=== PATIENT | female | born 1955 | race African-American/Black ===

== ENCOUNTER 2022-07-06 05:04 | Inpatient (IN) | payer MEDICARE, MEDICAID ==
[~2022-07-06] VITALS: Ht 165.1 cm; Wt 113.4 kg
[2022-07-06] MEDS ORDERED: IPRATROPIUM BROMIDE (0.02%) 0.5MG/2.5ML NEB HHN STA (05:11)
[2022-07-06] MEDS ORDERED: METHYLPREDNISOLONE SOD SUCC 125 MG/2 ML VIAL IV STA (05:11)
[2022-07-06] MEDS ORDERED: ALBUTEROL (0.083%) 2.5MG/3ML NEB HHN STA (05:11)
[2022-07-06 05:38] LABS: CHLORIDE 116 mEq/L (98-107)
[2022-07-06 05:39] LABS: BASOPHILS % 0.4 % (0.0-2.0); EOSINOPHILS % 2.3 % (0.0-5.0); HEMATOCRIT. 35.7 % (36.0-48.0); HEMOGLOBIN. 11.2 g/dL (12.0-16.0); LYMPHOCYTES % 8.3 % (20.0-50.0); MEAN CORPUSCULAR HEMOGLOBIN 26.8 pg (28.0-32.0); MEAN CORPUSCULAR VOLUME 85.3 fL (81.0-99.0); MONOCYTES % 4.1 % (2.0-8.0); NEUTROPHILS % 84.9 % (40.0-76.0); PLATELET 251 x1000/uL (130-400); RED BLOOD CELL COUNT 4.18 mill/uL (4.2-5.4); RED CELL DISTRIBUTION WIDTH 17.2 % (11.6-14.6)
[2022-07-06] MEDS ORDERED: ASPIRIN 81MG TABLET PO ONE (06:15)
[2022-07-06] MEDS ORDERED: FUROSEMIDE 40MG/4ML VIAL IV ONE (06:15)
[2022-07-06 08:00] VITALS: BP 161/98
[2022-07-06] MEDS ORDERED: CLONIDINE 0.1MG TABLET PO PRN (09:45)
[2022-07-06] MEDS ORDERED: ONDANSETRON HCL 4MG/2ML INJ IV PRN (09:45)
[2022-07-06] MEDS ORDERED: IPRATROPIUM/ALBUTEROL 0.5-3(2.5)MG/3ML NEB HHN PRN (09:45)
[2022-07-06 11:00] VITALS: BP 140/80
[2022-07-06 12:00] VITALS: BP 140/80
[2022-07-06] MEDS ORDERED: DEXTROSE 50% WATER 50ML SYRINGE IV PRN (14:00)
[2022-07-06] MEDS ORDERED: INSULIN LISPRO 100 UNITS/ML SUBCUT NR (15:00)
[2022-07-06 16:00] VITALS: BP 162/94
[2022-07-06 16:02] LABS: BG BASE EXCESS -1.6 mmol/L (-2.0-2.0); BG CARBOXYHEMOGLOBIN 0.5 % (0.5-1.5); BG DEOXYHEMOGLOBIN 3.2 % (0.0-5.0); BG FRACTION INSPIRED OXYGEN 28; BG HCO3 ACT 23.2 mmol/L (22.0-26.0); BG METHEMOGLOBIN 0.3 % (0.0-1.5); BG OXYGEN SATURATION 96.8 % (92.0-98.5); BG PCO2 39.8 mmHg (35.0-45.0); BG PH 7.384 (7.350-7.450); BG PO2 90.5 mmHg (75.0-100.0); BG SAMPLE SITE RIGHT RADIAL; BG TOTAL HEMOGLOBIN 11.8 g/dL (12.0-18.0); BG VENT MODE NASAL CANNULA
[2022-07-06] MEDS: BLOOD SUGAR DIAGNOSTIC STRIP TEST SCH ×2 (17:20→21:00)
[2022-07-06] MEDS ORDERED: INSULIN LISPRO 100 UNITS/ML SUBCUT SCH ×2 (17:50)
[2022-07-06] MEDS: INSULIN LISPRO 100 UNITS/ML SUBCUT SCH ×2 (18:47→22:25)
[2022-07-06 20:00] VITALS: BP 138/79
[2022-07-06] MEDS: ATORVASTATIN CALCIUM 20MG TABLET PO SCH (22:23)
[2022-07-06] MEDS: DIPHENHYDRAMINE 50MG/ML VIAL IV PRN (22:24)
[2022-07-07] MEDS: IPRATROPIUM/ALBUTEROL 0.5-3(2.5)MG/3ML NEB HHN SCH ×4 (00:01→22:06)
[2022-07-07 00:12] VITALS: BP 131/84
[2022-07-07 04:21] VITALS: BP 128/81
[2022-07-07] MEDS ORDERED: MED4 (05:05)
[2022-07-07] MEDS ORDERED: FURO40TA5 PO (05:05)
[2022-07-07] MEDS ORDERED: EMPA10TA PO (05:05)
[2022-07-07] MEDS ORDERED: AMLO10TA80 PO (05:05)
[2022-07-07] MEDS ORDERED: CITA20TA75 PO (05:05)
[2022-07-07] MEDS ORDERED: ATEN-42 PO (05:05)
[2022-07-07] MEDS ORDERED: ALBU18HF2 IH (05:05)
[2022-07-07] MEDS ORDERED: QUET100T34 PO (05:05)
[2022-07-07] MEDS ORDERED: PROSOL NEB (05:05)
[2022-07-07] MEDS ORDERED: ATOR20TA65 PO (05:05)
[2022-07-07] MEDS ORDERED: PRED10TA PO (05:05)
[2022-07-07] MEDS ORDERED: BUPR75TA8 PO (05:05)
[2022-07-07] MEDS ORDERED: PANT40TA51 PO (05:05)
[2022-07-07] MEDS: BLOOD SUGAR DIAGNOSTIC STRIP TEST SCH ×4 (06:17→21:14)
[2022-07-07 06:40] LABS: HEMATOCRIT. 31.9 % (36.0-48.0); HEMOGLOBIN. 9.9 g/dL (12.0-16.0); MEAN CORPUSCULAR HEMOGLOBIN 26.4 pg (28.0-32.0); MEAN CORPUSCULAR VOLUME 84.7 fL (81.0-99.0); MEAN PLATELET VOLUME 7.2 fl (7.4-10.4); PLATELET 238 x1000/uL (130-400); RED BLOOD CELL COUNT 3.77 mill/uL (4.2-5.4); RED CELL DISTRIBUTION WIDTH 16.1 % (11.6-14.6)
[2022-07-07 07:04] LABS: CHLORIDE 111 mEq/L (98-107)
[2022-07-07] MEDS: INSULIN LISPRO 100 UNITS/ML SUBCUT SCH ×4 (07:50→21:00)
[2022-07-07 08:00] VITALS: BP 131/81
[2022-07-07] MEDS: AMLODIPINE 10MG TABLET PO SCH (09:06)
[2022-07-07] MEDS: FUROSEMIDE 40MG/4ML VIAL IV SCH (09:06)
[2022-07-07 09:11] LABS: BG BASE EXCESS -0.5 mmol/L (-2.0-2.0); BG CARBOXYHEMOGLOBIN 0.7 % (0.5-1.5); BG DEOXYHEMOGLOBIN 3.7 % (0.0-5.0); BG FRACTION INSPIRED OXYGEN 28; BG HCO3 ACT 24.3 mmol/L (22.0-26.0); BG METHEMOGLOBIN 0.2 % (0.0-1.5); BG OXYGEN SATURATION 96.3 % (92.0-98.5); BG OXYHEMOGLOBIN 95.4 % (94.0-97.0); BG PCO2 40.4 mmHg (35.0-45.0); BG PH 7.397 (7.350-7.450); BG PO2 82.3 mmHg (75.0-100.0); BG SAMPLE SITE RIGHT RADIAL; BG TOTAL HEMOGLOBIN 11.7 g/dL (12.0-18.0); BG VENT MODE NASAL CANNULA
[2022-07-07] MEDS ORDERED: ENOXAPARIN 120MG/0.8ML SYR SUBCUT SCH (10:00)
[2022-07-07] MEDS ORDERED: POTASSIUM CHLORIDE 20MEQ/PACKET PO NR (10:15)
[2022-07-07 10:23] LABS: PLATELET ESTIMATE NORMAL
[2022-07-07 12:00] VITALS: BP 115/71
[2022-07-07 16:00] VITALS: BP 120/83
[2022-07-07 20:00] VITALS: BP 125/78
[2022-07-07] MEDS: DIPHENHYDRAMINE 50MG/ML VIAL IV PRN (21:15)
[2022-07-07] MEDS: ATORVASTATIN CALCIUM 20MG TABLET PO SCH (21:15)
[2022-07-08] VITALS: BP 112/62
[2022-07-08] MEDS: IPRATROPIUM/ALBUTEROL 0.5-3(2.5)MG/3ML NEB HHN SCH ×4 (01:38→21:01)
[2022-07-08 04:00] VITALS: BP 121/82
[2022-07-08] MEDS: BLOOD SUGAR DIAGNOSTIC STRIP TEST SCH ×4 (07:00→21:27)
[2022-07-08] MEDS: INSULIN LISPRO 100 UNITS/ML SUBCUT SCH ×4 (07:50→21:00)
[2022-07-08 08:00] VITALS: BP 107/71
[2022-07-08] MEDS: FUROSEMIDE 40MG/4ML VIAL IV SCH (08:57)
[2022-07-08] MEDS: AMLODIPINE 10MG TABLET PO SCH (08:57)
[2022-07-08 09:22] LABS: BASOPHILS % 0.4 % (0.0-2.0); EOSINOPHILS % 1.9 % (0.0-5.0); HEMATOCRIT. 36.1 % (36.0-48.0); HEMOGLOBIN. 11.2 g/dL (12.0-16.0); LYMPHOCYTES % 18.9 % (20.0-50.0); MEAN CORPUSCULAR HEMOGLOBIN 26.3 pg (28.0-32.0); MEAN CORPUSCULAR VOLUME 84.7 fL (81.0-99.0); MEAN PLATELET VOLUME 7.3 fl (7.4-10.4); MONOCYTES % 7.3 % (2.0-8.0); NEUTROPHILS % 71.5 % (40.0-76.0); PLATELET 260 x1000/uL (130-400); RED BLOOD CELL COUNT 4.26 mill/uL (4.2-5.4); RED CELL DISTRIBUTION WIDTH 16.7 % (11.6-14.6)
[2022-07-08 09:24] LABS: CHLORIDE 110 mEq/L (98-107)
[2022-07-08 09:27] LABS: INR 1.1; PROTHROMBIN TIME 11.3 sec (9.6-11.0)
[2022-07-08 12:00] VITALS: BP 123/73
[2022-07-08] MEDS: PANTOPRAZOLE SODIUM 40 MG/VIAL IV SCH (13:56)
[2022-07-08] MEDS: BUPROPION HCL 75MG TABLET PO SCH (13:57)
[2022-07-08] MEDS: CITALOPRAM HYDROBROMIDE 10MG TABLET PO SCH (13:57)
[2022-07-08] MEDS: ENOXAPARIN 120MG/0.8ML SYR SUBCUT SCH ×2 (13:57→21:28)
[2022-07-08 16:00] VITALS: BP 121/75
[2022-07-08 20:00] VITALS: BP 126/82
[2022-07-08] MEDS: QUETIAPINE FUMARATE 50MG TABLET PO SCH (21:28)
[2022-07-08] MEDS: ATORVASTATIN CALCIUM 20MG TABLET PO SCH (21:28)
[2022-07-09] VITALS: BP 110/58
[2022-07-09] MEDS: IPRATROPIUM/ALBUTEROL 0.5-3(2.5)MG/3ML NEB HHN SCH ×4 (01:01→20:44)
[2022-07-09 04:00] VITALS: BP 105/66
[2022-07-09 06:52] LABS: BASOPHILS % 0.5 % (0.0-2.0); HEMATOCRIT. 30.9 % (36.0-48.0); HEMOGLOBIN. 9.8 g/dL (12.0-16.0); LYMPHOCYTES % 21.6 % (20.0-50.0); MEAN CORPUSCULAR HEMOGLOBIN 26.7 pg (28.0-32.0); MEAN CORPUSCULAR VOLUME 84.2 fL (81.0-99.0); MEAN PLATELET VOLUME 7.3 fl (7.4-10.4); MONOCYTES % 7.3 % (2.0-8.0); NEUTROPHILS % 67.6 % (40.0-76.0); PLATELET 233 x1000/uL (130-400); RED BLOOD CELL COUNT 3.67 mill/uL (4.2-5.4); RED CELL DISTRIBUTION WIDTH 16.4 % (11.6-14.6)
[2022-07-09] MEDS: BLOOD SUGAR DIAGNOSTIC STRIP TEST SCH ×4 (07:06→21:24)
[2022-07-09 07:29] LABS: CHLORIDE 110 mEq/L (98-107)
[2022-07-09] MEDS: INSULIN LISPRO 100 UNITS/ML SUBCUT SCH ×4 (07:50→21:00)
[2022-07-09 08:00] VITALS: BP 115/73
[2022-07-09] MEDS: FUROSEMIDE 40MG/4ML VIAL IV SCH (09:57)
[2022-07-09] MEDS: BUPROPION HCL 75MG TABLET PO SCH (09:57)
[2022-07-09] MEDS: CITALOPRAM HYDROBROMIDE 10MG TABLET PO SCH (09:57)
[2022-07-09] MEDS: ENOXAPARIN 120MG/0.8ML SYR SUBCUT SCH ×2 (09:58→21:24)
[2022-07-09] MEDS: AMLODIPINE 10MG TABLET PO SCH (09:58)
[2022-07-09] MEDS: PANTOPRAZOLE SODIUM 40 MG/VIAL IV SCH (09:59)
[2022-07-09 12:00] VITALS: BP 107/70
[2022-07-09 16:00] VITALS: BP 121/89
[2022-07-09] MEDS ORDERED: IOHEXOL-350 100 ML BOTTLE ONE (19:41)
[2022-07-09 20:00] VITALS: BP 114/73
[2022-07-09] MEDS: ACETAMINOPHEN 325MG TABLET PO PRN (20:04)
[2022-07-09 20:49] LABS: HEMATOCRIT 32.5 % (36.0-48.0); HEMOGLOBIN 10.5 g/dL (12.0-16.0); MEAN CORPUSCULAR HEMOGLOBIN 26.8 pg (28.0-32.0); PLATELET 236 x1000/uL (130-400); RED BLOOD CELL COUNT 3.91 mill/uL (4.2-5.4)
[2022-07-09] MEDS: ATORVASTATIN CALCIUM 20MG TABLET PO SCH (21:24)
[2022-07-09] MEDS: QUETIAPINE FUMARATE 50MG TABLET PO SCH (21:24)
[2022-07-10] VITALS: BP 104/57
[2022-07-10] MEDS: IPRATROPIUM/ALBUTEROL 0.5-3(2.5)MG/3ML NEB HHN SCH ×3 (01:52→14:02)
[2022-07-10] MEDS: ACETAMINOPHEN 325MG TABLET PO PRN (02:02)
[2022-07-10 04:00] VITALS: BP 112/68
[2022-07-10] MEDS: BLOOD SUGAR DIAGNOSTIC STRIP TEST SCH ×3 (07:19→17:20)
[2022-07-10] MEDS: INSULIN LISPRO 100 UNITS/ML SUBCUT SCH ×3 (07:50→17:50)
[2022-07-10 08:10] VITALS: BP 117/76
[2022-07-10 08:10] LABS: BASOPHILS % 0.6 % (0.0-2.0); EOSINOPHILS % 2.2 % (0.0-5.0); HEMATOCRIT. 35.8 % (36.0-48.0); HEMOGLOBIN. 11.1 g/dL (12.0-16.0); LYMPHOCYTES % 17.3 % (20.0-50.0); MEAN CORPUSCULAR HEMOGLOBIN 26.1 pg (28.0-32.0); MEAN PLATELET VOLUME 7.4 fl (7.4-10.4); MONOCYTES % 6.8 % (2.0-8.0); NEUTROPHILS % 73.1 % (40.0-76.0); PLATELET 261 x1000/uL (130-400); RED BLOOD CELL COUNT 4.26 mill/uL (4.2-5.4); RED CELL DISTRIBUTION WIDTH 16.5 % (11.6-14.6)
[2022-07-10 08:21] LABS: CHLORIDE 109 mEq/L (98-107)
[2022-07-10] MEDS: BUPROPION HCL 75MG TABLET PO SCH (09:37)
[2022-07-10] MEDS: FUROSEMIDE 40MG/4ML VIAL IV SCH (09:37)
[2022-07-10] MEDS: PANTOPRAZOLE SODIUM 40 MG/VIAL IV SCH (09:37)
[2022-07-10] MEDS: CITALOPRAM HYDROBROMIDE 10MG TABLET PO SCH (09:37)
[2022-07-10] MEDS: AMLODIPINE 10MG TABLET PO SCH (09:38)
[2022-07-10] MEDS: ENOXAPARIN 120MG/0.8ML SYR SUBCUT SCH (09:39)
[2022-07-10] MEDS: HYDROCODONE/ACETAMINOPHEN 5/325MG TABLET PO PRN ×2 (09:41→16:47)
[2022-07-10 12:00] VITALS: BP 115/70
[2022-07-10] MEDS ORDERED: APIX5TAB MT (14:38)
[2022-07-10 15:54] VITALS: BP 114/77
[2022-07-10 17:14] VITALS: BP 114/77
== END 2022-07-10 19:20 | disposition home health service (06) | DRG 291 ==
LOC: ER 05:40 → 6WST 08:54 → ENRESERV 09:28
PROVIDERS: ADMIT Internal Medicine; ATTEND Internal Medicine
PROC: 5A09357 Assistance with Respiratory Ventilation, Less than 24 Consecutive Hours, Continuous Positive Airway Pressure (ICD-10-PCS; principal; 2022-07-06)
PROC: 5A09357 Assistance with Respiratory Ventilation, Less than 24 Consecutive Hours, Continuous Positive Airway Pressure (ICD-10-PCS; 2022-07-08)
DX: I11.0 Hypertensive heart disease with heart failure (principal); I50.43 Acute on chronic combined systolic (congestive) and diastolic (congestive) heart failure; J96.01 Acute respiratory failure with hypoxia; J44.1 Chronic obstructive pulmonary disease with (acute) exacerbation; I82.401 Acute embolism and thrombosis of unspecified deep veins of right lower extremity; E11.9 Type 2 diabetes mellitus without complications; Z20.822 Contact with and (suspected) exposure to COVID-19; I27.20 Pulmonary hypertension, unspecified; E78.5 Hyperlipidemia, unspecified; D49.6 Neoplasm of unspecified behavior of brain; Z79.899 Other long term (current) drug therapy
CPT/HCPCS: 36415; 36600; 71045; 71275; 80048; 80053; 82375; 82805; 82962; 83036; 83735; 83880; 84484; 85018; 85025; 85027; 87426; 93005; 93306; 93970; 94618; 94640; 94660; 99285; C9113; J1200; J1650; J1815; J1940; J2930; Q9967

== ENCOUNTER 2022-09-11 11:30 | Inpatient (IN) | payer MEDICARE, MEDICAID ==
[~2022-09-11] VITALS: Ht 165.1 cm; Wt 103.9 kg
[~2022-09-11 11:30] MED LIST: ALBU18HF2 IH; AMLO10TA80 PO; APIX5TAB MT; ATEN-42 PO; ATOR20TA65 PO; BUPR75TA8 PO; CITA20TA75 PO; EMPA10TA PO; FURO40TA5 PO; MED4; PANT40TA51 PO; PROSOL NEB; QUET100T34 PO
[2022-09-11 12:31] LABS: BASOPHILS % 0.6 % (0.0-2.0); EOSINOPHILS % 1.3 % (0.0-5.0); HEMOGLOBIN. 12.2 g/dL (12.0-16.0); MEAN CORPUSCULAR HEMOGLOBIN 25.1 pg (28.0-32.0); MEAN CORPUSCULAR VOLUME 80.3 fL (81.0-99.0); NEUTROPHILS % 80.1 % (40.0-76.0); PLATELET 252 x1000/uL (130-400); RED BLOOD CELL COUNT 4.86 mill/uL (4.2-5.4); RED CELL DISTRIBUTION WIDTH 17.5 % (11.6-14.6)
[2022-09-11 12:39] LABS: INR 1.1; PROTHROMBIN TIME 11.9 sec (9.6-11.0)
[2022-09-11 12:47] LABS: CHLORIDE 113 mEq/L (98-107)
[2022-09-11] MEDS ORDERED: ASPIRIN 81MG TABLET PO ONE (14:00)
[2022-09-11] MEDS ORDERED: SODIUM CHLORIDE 0.9% 1,000 ML IV ONE (14:00)
[2022-09-11] MEDS ORDERED: ACETAMINOPHEN 650MG/20.3ML UDC GT PRN ×2 (18:15)
[2022-09-11] MEDS ORDERED: LORAZEPAM 0.5MG TABLET PO PRN (18:15)
[2022-09-11] MEDS ORDERED: ONDANSETRON HCL 4MG/2ML INJ IV PRN (18:15)
[2022-09-11] MEDS ORDERED: IPRATROPIUM/ALBUTEROL 0.5-3(2.5)MG/3ML NEB HHN PRN (18:15)
[2022-09-11] MEDS ORDERED: ACETAMINOPHEN 325MG TABLET PO PRN ×2 (18:15)
[2022-09-11] MEDS ORDERED: CLONIDINE 0.1MG TABLET PO PRN (18:15)
[2022-09-11] MEDS ORDERED: NALOXONE HCL 0.4MG/ML VIAL IV PRN (18:45)
[2022-09-11 20:58] LABS: T4 FREE 1.26 ng/dL (0.76-1.46)
[2022-09-11 22:30] VITALS: BP 132/88
[2022-09-11] MEDS: APIXABAN 5 MG TABLET PO SCH (22:58)
[2022-09-11] MEDS: PANTOPRAZOLE 40MG DR TABLET PO SCH (22:59)
[2022-09-11] MEDS: HYDROCODONE/ACETAMINOPHEN 5/325MG TABLET PO PRN (23:03)
[2022-09-12] VITALS: BP 142/89
[2022-09-12] MEDS: HYDROCODONE/ACETAMINOPHEN 5/325MG TABLET PO PRN ×2 (02:42→14:54)
[2022-09-12 04:00] VITALS: BP_SYST 144; BP_SYST 150; BP_DIAS 91; BP_DIAS 93
[2022-09-12] MEDS: FUROSEMIDE 40MG TABLET PO SCH ×2 (06:32→17:10)
[2022-09-12 08:00] VITALS: BP 143/88
[2022-09-12] MEDS ORDERED: BUPROPION HCL 75MG TABLET PO SCH (09:00)
[2022-09-12] MEDS ORDERED: ATORVASTATIN CALCIUM 20MG TABLET PO SCH (09:00)
[2022-09-12] MEDS: PANTOPRAZOLE 40MG DR TABLET PO SCH ×2 (09:58→20:18)
[2022-09-12] MEDS: AMLODIPINE 10MG TABLET PO SCH (09:58)
[2022-09-12] MEDS: APIXABAN 5 MG TABLET PO SCH ×2 (09:58→20:18)
[2022-09-12] MEDS: ATENOLOL 25MG TABLET PO SCH (09:59)
[2022-09-12 12:00] VITALS: BP 132/90
[2022-09-12] MEDS: BUPROPION HCL 75MG TABLET PO SCH (12:21)
[2022-09-12 16:00] VITALS: BP 131/78
[2022-09-12 16:19] LABS: BASOPHILS % 0.4 % (0.0-2.0); EOSINOPHILS % 2.4 % (0.0-5.0); HEMATOCRIT. 35.6 % (36.0-48.0); HEMOGLOBIN. 11.3 g/dL (12.0-16.0); LYMPHOCYTES % 14.9 % (20.0-50.0); MEAN CORPUSCULAR VOLUME 78.9 fL (81.0-99.0); MEAN PLATELET VOLUME 7.8 fl (7.4-10.4); MONOCYTES % 6.7 % (2.0-8.0); NEUTROPHILS % 75.6 % (40.0-76.0); PLATELET 244 x1000/uL (130-400); RED BLOOD CELL COUNT 4.51 mill/uL (4.2-5.4); RED CELL DISTRIBUTION WIDTH 17.3 % (11.6-14.6)
[2022-09-12 17:43] LABS: CHLORIDE 109 mEq/L (98-107)
[2022-09-12 20:00] VITALS: BP 115/86
[2022-09-13] VITALS: BP 138/89
[2022-09-13 04:00] VITALS: BP 128/81
[2022-09-13] MEDS: FUROSEMIDE 40MG TABLET PO SCH ×2 (06:23→19:00)
[2022-09-13 08:00] VITALS: BP 109/70
[2022-09-13] MEDS: AMLODIPINE 10MG TABLET PO SCH (09:22)
[2022-09-13] MEDS: PANTOPRAZOLE 40MG DR TABLET PO SCH ×2 (09:23→21:48)
[2022-09-13] MEDS: APIXABAN 5 MG TABLET PO SCH ×2 (09:23→21:48)
[2022-09-13] MEDS: BUPROPION HCL 75MG TABLET PO SCH (09:23)
[2022-09-13] MEDS: ATENOLOL 25MG TABLET PO SCH (09:23)
[2022-09-13] MEDS: HYDROCODONE/ACETAMINOPHEN 5/325MG TABLET PO PRN ×2 (09:25→21:48)
[2022-09-13 12:00] VITALS: BP 104/63
[2022-09-13] MEDS: CITALOPRAM HYDROBROMIDE 10MG TABLET PO SCH (13:49)
[2022-09-13 16:00] VITALS: BP 106/70
[2022-09-13 20:00] VITALS: BP 111/75
[2022-09-13] MEDS ORDERED: QUETIAPINE FUMARATE 50MG TABLET PO SCH (21:00)
[2022-09-13] MEDS ORDERED: ATORVASTATIN CALCIUM 20MG TABLET PO SCH (21:00)
[2022-09-14] VITALS: BP 103/69
[2022-09-14 04:00] VITALS: BP 96/68
[2022-09-14] MEDS: FUROSEMIDE 40MG TABLET PO SCH (06:34)
[2022-09-14 08:00] VITALS: BP 101/60
[2022-09-14] MEDS: ATENOLOL 25MG TABLET PO SCH (08:17)
[2022-09-14] MEDS: AMLODIPINE 10MG TABLET PO SCH (08:17)
[2022-09-14] MEDS: CITALOPRAM HYDROBROMIDE 10MG TABLET PO SCH (08:21)
[2022-09-14] MEDS: BUPROPION HCL 75MG TABLET PO SCH (08:21)
[2022-09-14] MEDS: PANTOPRAZOLE 40MG DR TABLET PO SCH (08:21)
[2022-09-14] MEDS: APIXABAN 5 MG TABLET PO SCH (08:21)
[2022-09-14] MEDS: HYDROCODONE/ACETAMINOPHEN 5/325MG TABLET PO PRN (11:13)
[2022-09-14 12:00] VITALS: BP 106/63
[2022-09-14 15:39] VITALS: BP 116/59
[2022-09-14 15:56] LABS: BASOPHILS % 0.8 % (0.0-2.0); EOSINOPHILS % 2.5 % (0.0-5.0); HEMATOCRIT. 35.2 % (36.0-48.0); HEMOGLOBIN. 11.1 g/dL (12.0-16.0); MEAN CORPUSCULAR HEMOGLOBIN 25.1 pg (28.0-32.0); MEAN CORPUSCULAR VOLUME 79.5 fL (81.0-99.0); MEAN PLATELET VOLUME 8.1 fl (7.4-10.4); MONOCYTES % 8.4 % (2.0-8.0); NEUTROPHILS % 71.3 % (40.0-76.0); PLATELET 218 x1000/uL (130-400); RED BLOOD CELL COUNT 4.44 mill/uL (4.2-5.4); RED CELL DISTRIBUTION WIDTH 17.4 % (11.6-14.6)
[2022-09-14 16:00] VITALS: BP 116/59
[2022-09-14 16:18] LABS: CHLORIDE 105 mEq/L (98-107)
[2022-09-14 16:27] LABS: PHOSPHORUS 4.3 mg/dL (2.5-4.9)
== END 2022-09-14 17:00 | disposition home health service (06) | DRG 103 ==
LOC: ER 11:33 → EDBEDREQ 17:26 → EDBEDREQTM 17:26 → 8WST 22:53
PROVIDERS: ADMIT Internal Medicine; ATTEND Internal Medicine
DX: G43.909 Migraine, unspecified, not intractable, without status migrainosus (principal); D49.7 Neoplasm of unspecified behavior of endocrine glands and other parts of nervous system; F32.A Depression, unspecified; F41.9 Anxiety disorder, unspecified; I11.0 Hypertensive heart disease with heart failure; I50.9 Heart failure, unspecified; Z20.822 Contact with and (suspected) exposure to COVID-19; E66.01 Morbid (severe) obesity due to excess calories; H53.8 Other visual disturbances; J44.9 Chronic obstructive pulmonary disease, unspecified; E11.9 Type 2 diabetes mellitus without complications; E78.5 Hyperlipidemia, unspecified; F32.9 Major depressive disorder, single episode, unspecified; Z79.899 Other long term (current) drug therapy; Z79.01 Long term (current) use of anticoagulants; Z86.718 Personal history of other venous thrombosis and embolism; Z68.38 Body mass index [BMI] 38.0-38.9, adult
CPT/HCPCS: 36415; 70551; 71045; 80048; 80053; 82962; 83735; 83880; 84100; 84439; 84443; 84484; 85025; 87426; 93005; 93880; 99285; J7030